=== PATIENT | male | born 1990 | race Two or more races ===

== ENCOUNTER 2023-08-24 10:46 | Emergency (ER) | payer OTHER ==
[~2023-08-24] VITALS: Ht 188 cm; Wt 78.0 kg
[2023-08-24] MEDS ORDERED: DICLOFENAC SODI75 MG PO (13:23)
== END 2023-08-24 13:31 | disposition home or self-care (01) ==
LOC: ER 10:47
DX: M25.562 Pain in left knee (principal); B20 Human immunodeficiency virus [HIV] disease